=== PATIENT | male | born 1990 | race African-American/Black ===

== ENCOUNTER 2018-03-09 04:59 | Inpatient (IN) | payer SELFPAY ==
[2018-03-09] VITALS (9 sets, daily range): BP systolic 117–169; BP diastolic 68–95; PULSE 80–94; RESP 15–20; TEMP 98–99; O2SAT 94–100
[~2018-03-09] VITALS: Ht 175.3 cm; Wt 107.0 kg
--- NOTE | 2018-03-09 05:29 | PD ---
HPI Chief Complaint: Pain: Acute or Chronic Time Seen by Provider: 05:09 Travel History International Travel<30 days: No Contact w/Intl Traveler<30days: No Traveled to known affect area: No History of Present Illness HPI 19-year-old male complains of pain and swelling left elbow. Patient states that the symptoms started about a week ago. Patient was seen at an emergency room in [place] 4 days ago and was diagnosed with bursitis. Patient was given prescription of Naprosyn for pain. Patient was seen at another hospital 2 days after that. Patient was told that he has infection the left elbow and given prescription for Bactrim DS. Patient has been taking Bactrim DS as directed. Patient states he has increasing pain and swelling on left elbow. Patient stated pain is severe sharp pain mostly on the posterior aspect the left elbow. Patient states the pain is worse with movement the left elbow joint fever chills. Patient denies any other problem. On a scale from 1-10 the pain is a 10. PFSH Past Medical History Diabetes: Yes Patient Takes Glucophage: No Hypertension: Yes Influenza Vaccination: No Past Surgical History Surgical History: No Previous Surgery Social History Alcohol Use: No Tobacco Use: No Substance Use: No Allergies-Medications (Allergen,Severity, Reaction): Coded Allergies: No Known Allergies (Unverified , 03/09/18) Reported Meds & Prescriptions Reported Meds & Active Scripts Active Reported Novolin 70-30 Inj (Insulin Human Isoph/Insulin Regular) 1,000 Unit/10 Ml Vial 1 Units SQ Review of Systems General / Constitutional: No: Fever Eyes: No: Visual changes HENT: No: Headaches Cardiovascular: No: Chest Pain or Discomfort Respiratory: No: Shortness of Breath Gastrointestinal: No: Abdominal Pain Genitourinary: No: Dysuria Musculoskeletal: Positive: Pain Skin: No Rash Neurologic: No: Weakness Psychiatric: No: Depression Endocrine: No: Polydipsia Hematologic/Lymphatic: No: Easy Bruising Physical Exam Narrative GENERAL: Well-nourished, well-developed patient. SKIN: Focused skin assessment warm/dry. HEAD: Normocephalic. EYES: No scleral icterus. No injection or drainage. NECK: Supple, trachea midline. No JVD or lymphadenopathy. CARDIOVASCULAR: Regular rate and rhythm without murmurs, gallops, or rubs. RESPIRATORY: Breath sounds equal bilaterally. No accessory muscle use. GASTROINTESTINAL: Abdomen soft, non-tender, nondistended. MUSCULOSKELETAL: No cyanosis, or edema. BACK: Nontender without obvious deformity. No CVA tenderness. Patient is soft tissue swelling tenderness diffuse over the posterior medial lateral aspect of the left elbow joint. Limited range of motion of the left elbow secondary to pain. Sensory motor function distally intact. Data Data Last Documented VS Vital Signs Date Time Temp Pulse Resp B/P (MAP) Pulse Ox O2 Delivery O2 Flow Rate FiO2 03/09/18 05:37 96 Room Air 03/09/18 05:02 98.0 83 16 169/95 (119) Orders Orders Complete Blood Count With Diff (03/09/18 05:17) Comprehensive Metabolic Panel (03/09/18 05:17) Prothrombin Time / Inr (Pt) (03/09/18 05:17) Act Partial Throm Time (Ptt) (03/09/18 05:17) Blood Culture (03/09/18 05:17) Iv Access Insert/Monitor (03/09/18 05:17) Ecg Monitoring (03/09/18 05:17) Oximetry (03/09/18 05:17) C-Reactive Protein (Crp) (03/09/18 05:17) Westergren Sedimentation Rate (03/09/18 05:17) Sodium Chlor 0.9% 1000 Ml Inj (Ns 1000 M (03/09/18 05:30) Morphine Inj (Morphine Inj) (03/09/18 05:30) Ondansetron Inj (Zofran Inj) (03/09/18 05:30) Vancomycin Inj (Vancomycin Inj) (03/09/18 05:30) Elbow, Limited (Ap&Lat) (03/09/18 05:22) Mri Joint Elbow W&W/O Contrast (03/09/18 ) Labs Laboratory Tests Test 03/09/18 05:25 03/09/18 05:30 Erythrocyte Sedimentation Rate 39 mm/hr Prothrombin Time 9.4 SEC Prothromb Time International Ratio 0.9 RATIO Activated Partial Thromboplast Time 27.5 SEC Blood Urea Nitrogen 16 MG/DL Creatinine 1.19 MG/DL Random Glucose 379 MG/DL Total Protein 7.3 GM/DL Albumin 3.1 GM/DL Calcium Level 8.8 MG/DL Alkaline Phosphatase 78 U/L Aspartate Amino Transf (AST/SGOT) 33 U/L Alanine Aminotransferase (ALT/SGPT) 20 U/L Total Bilirubin 0.4 MG/DL Sodium Level 135 MEQ/L Potassium Level 4.4 MEQ/L Chloride Level 102 MEQ/L Carbon Dioxide Level 24.3 MEQ/L Anion Gap 9 MEQ/L Estimat Glomerular Filtration Rate 88 ML/MIN C-Reactive Protein 11.30 MG/DL White Blood Count 8.7 TH/MM3 Red Blood Count 5.39 MIL/MM3 Hemoglobin 14.5 GM/DL Hematocrit 42.5 % Mean Corpuscular Volume 78.8 FL Mean Corpuscular Hemoglobin 26.9 PG Mean Corpuscular Hemoglobin Concent 34.1 % Red Cell Distribution Width 13.0 % Platelet Count 228 TH/MM3 Mean Platelet Volume 8.7 FL Neutrophils (%) (Auto) 77.6 % Lymphocytes (%) (Auto) 12.9 % Monocytes (%) (Auto) 8.2 % Eosinophils (%) (Auto) 0.6 % Basophils (%) (Auto) 0.7 % Neutrophils # (Auto) 6.7 TH/MM3 Lymphocytes # (Auto) 1.1 TH/MM3 Monocytes # (Auto) 0.7 TH/MM3 Eosinophils # (Auto) 0.1 TH/MM3 Basophils # (Auto) 0.1 TH/MM3 CBC Comment DIFF FINAL Differential Comment MDM Medical Decision Making Medical Screen Exam Complete: Yes Emergency Medical Condition: Yes Interpretation(s) 6:31 AM. X-ray left elbow showed no acute bony injury. CBC WBC 8.7. 77 neutrophil. Sed rate 39. Sodium 135. Glucose 379. C-reactive protein 11.3. Differential Diagnosis Differential diagnosis including cellulitis, septic joint. Narrative Course 19-year-old male with pain and swelling and limited mobility left elbow joint. Normal saline solution 1 25 cc an hour. Vancomycin 1 g IV. Morphine 2 mg IV. Zofran 4 mg IV. Diagnosis Primary Impression: Cellulitis of left elbow Admitting Information Admitting Physician Requests: Admit Kyler Vasquez MD Mar 09, 2018 05:29
[2018-03-09] MEDS ORDERED: VANCOMYCIN INJ 1,000 MG in SODIUM CHLOR 0.9% 250 ML INJ 250 ML IV ONE (05:30)
[2018-03-09] MEDS ORDERED: MORPHINE SULFATE 2 MG/ML SYRINGE IV PUSH ONE (05:30)
[2018-03-09] MEDS ORDERED: ONDANSETRON HCL 4 MG/2 ML VIAL IV PUSH ONE (05:30)
[2018-03-09] MEDS ORDERED: SODIUM CHLOR 0.9% 1000 ML INJ 1,000 ML IV SCH (05:30)
[2018-03-09 05:42] LABS: AUTOMATED NEUTROPHIL # 6.7 TH/MM3 (1.8-7.7); BASOPHIL # 0.1 TH/MM3 (0-0.2); BASOPHIL % 0.7 % (0.0-2.0); EOSINOPHIL # 0.1 TH/MM3 (0-0.4); EOSINOPHIL % 0.6 % (0.0-4.0); HEMATOCRIT 42.5 % (39.0-51.0); HEMOGLOBIN 14.5 GM/DL (13.0-17.0); LYMPH % 12.9 % (9.0-44.0); LYMPHOCYTE # 1.1 TH/MM3 (1.0-4.8); MEAN CELL VOLUME 78.8 FL (80.0-100.0); MEAN CORPUSCULAR HEMOGLOBIN 26.9 PG (27.0-34.0); MEAN CORPUSCULAR HGB CONC 34.1 % (32.0-36.0); MEAN PLATELET VOLUME 8.7 FL (7.0-11.0); MONO % 8.2 % (0.0-8.0); MONOCYTE # 0.7 TH/MM3 (0-0.9); NEUT % 77.6 % (16.0-70.0); PLATELET COUNT 228 TH/MM3 (150-450); RED BLOOD COUNT 5.39 MIL/MM3 (4.50-5.90); WHITE BLOOD COUNT 8.7 TH/MM3 (4.0-11.0)
[2018-03-09] MEDS ORDERED: NOVO7030P2 SQ (05:48)
[2018-03-09 05:52] LABS: INTERNATIONAL NORMALIZED RATIO 0.9 RATIO; PROTHROMBIN TIME - PATIENT 9.4 SEC (9.8-11.6)
[2018-03-09 06:16] LABS: ALKALINE PHOSPHATASE 78 U/L (45-117); TOTAL BILIRUBIN ADULT 0.4 MG/DL (0.2-1.0); TOTAL PROTEIN 7.3 GM/DL (6.4-8.2)
[2018-03-09 06:24] LABS: ALBUMIN 3.1 GM/DL (3.4-5.0); ALT (GPT) 20 U/L (12-78); AST (GOT) 33 U/L (15-37); BICARBONATE 24.3 MEQ/L (21.0-32.0); BLOOD UREA NITROGEN 16 MG/DL (7-18); CALCIUM 8.8 MG/DL (8.5-10.1); CHLORIDE 102 MEQ/L (98-107); CREATININE 1.19 MG/DL (0.60-1.30); GLOMERULAR FILTRATION RATE 88 ML/MIN (>89); GLUCOSE,RANDOM 379 MG/DL (74-106); SODIUM (NA) 135 MEQ/L (136-145)
--- NOTE | 2018-03-09 06:29 | RADRPT ---
EXAM DATE/TIME: 03/09/2018 05:30 [facility] COMPARISON: No previous studies available for comparison. INDICATIONS : Elbow pain and swelling. MEDICAL HISTORY : None. SURGICAL HISTORY : None. ENCOUNTER: Initial ACUITY: 4 - 6 days PAIN SCORE: 10/10 LOCATION: Left upper extremity elbow FINDINGS: Two view examination of the left elbow demonstrates no soft tissue swelling, joint effusion, fracture or dislocation. Bony mineralization is normal. CONCLUSION: Unremarkable limited examination of the left elbow. Yuniel Garcia Jr., MD on March 09, 2018 at 6:27 Board Certified Radiologist. This report was verified electronically.
[2018-03-09] MEDS ORDERED: ONDANSETRON HCL 4 MG/2 ML VIAL IVP PRN (06:45)
[2018-03-09] MEDS ORDERED: SENNOSIDES 8.6 MG TAB PO PRN (06:45)
[2018-03-09] MEDS ORDERED: NORV2.5T PO (06:45)
[2018-03-09] MEDS ORDERED: Vancomycin Consult Pharmacy 1 EA OTHER SCH (06:45)
[2018-03-09] MEDS ORDERED: LISI10TA3 PO (06:45)
[2018-03-09] MEDS ORDERED: BISACODYL 10 MG SUPP RECTAL PRN (06:45)
[2018-03-09] MEDS ORDERED: LACTULOSE SYRUP 20 GM/30 ML CUP PO PRN (06:45)
[2018-03-09] MEDS ORDERED: ACETAMINOPHEN 325 MG TAB PO PRN (06:45)
[2018-03-09] MEDS ORDERED: SODIUM CHLORIDE 0.9% FLUSH 10 ML FLUSH IV FLUSH PRN (06:45)
[2018-03-09] MEDS ORDERED: MAGNESIUM HYDROXIDE SUSP 30 ML CUP PO PRN (06:45)
[2018-03-09] MEDS: VANCOMYCIN 1,000 MG/NS 250 ML IV ONE ×4 (07:05→08:15)
[2018-03-09] MEDS: SODIUM CHLOR 0.9% 1000 ML INJ 1,000 ML IV SCH ×2 (07:19→16:58)
[2018-03-09] MEDS ORDERED: GADODIAMIDE PF 287 MG/ML 20 ML VIAL (for RAD MRI) IVCONTRAST ONE (07:50)
[2018-03-09] MEDS: ACETAMINOPHEN/HYDROcodone 325 MG/5 MG TAB PO PRN ×3 (08:15→20:18)
--- NOTE | 2018-03-09 08:44 | RADRPT ---
EXAM DATE/TIME: 03/09/2018 07:25 [facility] COMPARISON: ELBOW LEFT LIMITED (AP & LAT), March 09, 2018, 5:30. INDICATIONS : Edema. Left elbow pain and swelling x 5 days without injury. CONTRAST: 20 cc Omniscan (gadodiamide) IV MEDICAL HISTORY : None. SURGICAL HISTORY : None. ENCOUNTER: Initial ACUITY: 4-6 days PAIN SCORE: 3/10 LOCATION: Left elbow TECHNIQUE: Multiplanar, multisequence MRI examination was performed without contrast and after the intravenous a dministration of gadolinium. FINDINGS: BONE/CARTILAGE: Bone marrow signal is homogeneous. Articular cartilage signal is within normal limits. TENDONS: All of the visualized tendons are intact. LIGAMENTS: The radial collateral and ulnar collateral ligament complexes are intact. MISCELLANEOUS: There is a focal irregular fluid collection in the subcutaneous tissue adjacent to the olecranon mechelle uring up to approximately 1.6 x 1.1 x 1.5 cm in greatest diameter. This extends out to the skin surfa ce an apparent small tract. After gadolinium administration extensive enhancement surrounding the flu id collection and in the adjacent subcutaneous fat. Diffuse soft tissue edema radius posteriorly. The re is minimal joint fluid. POST-CONTRAST: Extensive abnormal enhancement surrounding the fluid collection and posterior subcutaneous fat adjace nt to the olecranon and surrounding the irregular fluid collection. CONCLUSION: Irregular fluid collection with surrounding enhancement and edema most characteristic of an abscess. Lamont Shaw MD on March 09, 2018 at 8:36 Board Certified Radiologist. This report was verified electronically.
[2018-03-09] MEDS: DOCUSATE SODIUM 50 MG/SENNA 8.6 MG TAB PO SCH ×2 (08:52→20:05)
[2018-03-09] MEDS: SODIUM CHLORIDE 0.9% FLUSH 10 ML FLUSH IV FLUSH SCH ×2 (08:52→20:05)
[2018-03-09] MEDS ORDERED: DEXTROSE 50% IN WATER 50 ML VIAL(D50) IV PUSH PRN (09:00)
[2018-03-09] MEDS ORDERED: GLUCAGON 1 MG/ML VIAL OTHER PRN (09:00)
--- NOTE | 2018-03-09 09:14 | HHI.HP ---
HPI Service [facility] Primary Care Physician No Primary Care Physician Admission Diagnosis Left elbow cellulitis. Failed outpatient treatment Diagnoses: Chief Complaint: left elbow swelling Travel History International Travel<30 Days: No Contact w/Intl Traveler <30 Da: No Traveled to Known Affected Are: No History of Present Illness Written by Ritu Rodríguez, acting as scribe for Dr. Rodriguez on 03/09/18 at 09: 11. 27-year-old male with history of hypertension and insulin dependent diabetes presents with 5 day history of left elbow swelling and pain. The patient states he went to ER in [place], diagnosed with bursitis, given Rx for naproxen with no improvement. He then went to another ER the next day, diagnosed with cellulitis, attempted needle aspiration however only removed 4cc clear/bloody fluid, and he was discharged with prescription for Bactrim. He has been taking Bactrim for 2 days with no improvement. He reports diffuse left elbow swelling that extends into the forearm and upper arm, associated with severe 10/10 pain, now relieved s/p IV morphine and po norco in the ED. He reports limited ROM of the left elbow secondary to the pain and swelling. He denies any fevers/chills. He denies any injury to the elbow that he can recall. Denies any insect bite or wounds. He denies any IVDU. He denies any other medical complaints at this time. For his diabetes, he takes Humalog N 30u in morning, 20u in pm. The patient reports uncontrolled blood sugars at home, usually in the 200s. He recently signed up for a diabetes management group in [place]. Review of Systems Except as stated in HPI: all other systems reviewed are Neg Past Family Social History Past Medical History insulin dependent diabetes, diagnosed age 16 hypertension Past Surgical History Denies any prior surgeries. Reported Medications Norvasc (Amlodipine Besylate) 2.5 Mg Tab 2.5 Mg PO DAILY Lisinopril 10 Mg Tab 10 Mg PO DAILY Novolin 70-30 Inj (Insulin Human Isoph/Insulin Regular) 1,000 Unit/10 Ml Vial 1 Units SQ Allergies: Coded Allergies: No Known Allergies (Unverified , 03/09/18) Active Ordered Medications Current Medications Medications (Trade) Dose Ordered Sig/Kenny Route Start Time Stop Time Status Last Admin Pharmacy Profile Note 0 ml @ 0 mls/hr UNSCH OTHER 03/09/18 06:45 Cefepime HCl 1000 mg/Sodium Chloride 100 ml @ 200 mls/hr Q12H IV 03/09/18 18:00 Sodium Chloride 1,000 ml @ 100 mls/hr Q10H IV 03/09/18 06:40 03/09/18 07:19 (NS Flush) 2 ml UNSCH PRN IV FLUSH 03/09/18 06:45 (NS Flush) 2 ml BID IV FLUSH 03/09/18 09:00 (Zofran Inj) 4 mg Q6H PRN IVP 03/09/18 06:45 (Tylenol) 650 mg Q6H PRN PO 03/09/18 06:45 (Schuyler 5-325 Mg) 1 tab Q4H PRN PO 03/09/18 06:45 03/09/18 08:15 (Morphine Inj) 2 mg Q3H PRN IV PUSH 03/09/18 06:45 (Ana-Colace) 1 tab BID PO 03/09/18 09:00 (Milk Of Magnesia Liq) 30 ml Q12H PRN PO 03/09/18 06:45 (Senokot) 17.2 mg Q12H PRN PO 03/09/18 06:45 (Dulcolax Supp) 10 mg DAILY PRN RECTAL 03/09/18 06:45 (Lactulose Liq) 30 ml DAILY PRN PO 03/09/18 06:45 (D50w (Vial) Inj) 50 ml UNSCH PRN IV PUSH 03/09/18 09:00 (Glucagon Inj) 1 mg UNSCH PRN OTHER 03/09/18 09:00 (NovoLOG SUPPLEMENTAL SCALE) 1 ACHS SLIDING SCALE SQ 03/09/18 12:00 Family History Mother with diabetes and ESRD on dialysis Father with hypertension Grandma and sisters with diabetes Social History Denies any tobacco, alcohol, or illicit drug use. Physical Exam Vital Signs Vital Signs Date Time Temp Pulse Resp B/P (MAP) Pulse Ox O2 Delivery O2 Flow Rate FiO2 03/09/18 06:44 82 16 140/70 (93) 98 Room Air 03/09/18 05:37 96 Room Air 03/09/18 05:02 98.0 83 16 169/95 (119) 96 Physical Exam GENERAL: Well-nourished, well-developed young AA male patient in [facility]. SKIN: Warm and dry. No rash. HEAD: Normocephalic. Atraumatic. EYES: Pupils equal and round. No scleral icterus. No injection or drainage. ENT: No nasal bleeding or discharge. Mucous membranes pink and moist. NECK: Supple. Trachea midline. CARDIOVASCULAR: Regular rate and rhythm. S1, S2 noted. No murmur appreciated. RESPIRATORY: No accessory muscle use. Clear to auscultation. Breath sounds equal bilaterally. GASTROINTESTINAL: Abdomen soft, non-tender, nondistended. Normoactive bowel sounds x4. MUSCULOSKELETAL: Left elbow with diffuse edema and warmth throughout the entire elbow, with limited ROM of the left elbow secondary to pain/edema; no open wounds or drainage. NEUROLOGICAL: Awake and alert. No obvious cranial nerve deficits. Motor grossly within normal limits. Normal speech. PSYCHIATRIC: Appropriate mood and affect; insight and judgment normal. Laboratory Laboratory Tests Test 03/09/18 05:25 03/09/18 05:30 Erythrocyte Sedimentation Rate 39 Prothrombin Time 9.4 Prothromb Time International Ratio 0.9 Activated Partial Thromboplast Time 27.5 Blood Urea Nitrogen 16 Creatinine 1.19 Random Glucose 379 Total Protein 7.3 Albumin 3.1 Calcium Level 8.8 Alkaline Phosphatase 78 Aspartate Amino Transf (AST/SGOT) 33 Alanine Aminotransferase (ALT/SGPT) 20 Total Bilirubin 0.4 Sodium Level 135 Potassium Level 4.4 Chloride Level 102 Carbon Dioxide Level 24.3 Anion Gap 9 Estimat Glomerular Filtration Rate 88 C-Reactive Protein 11.30 White Blood Count 8.7 Red Blood Count 5.39 Hemoglobin 14.5 Hematocrit 42.5 Mean Corpuscular Volume 78.8 Mean Corpuscular Hemoglobin 26.9 Mean Corpuscular Hemoglobin Concent 34.1 Red Cell Distribution Width 13.0 Platelet Count 228 Mean Platelet Volume 8.7 Neutrophils (%) (Auto) 77.6 Lymphocytes (%) (Auto) 12.9 Monocytes (%) (Auto) 8.2 Eosinophils (%) (Auto) 0.6 Basophils (%) (Auto) 0.7 Neutrophils # (Auto) 6.7 Lymphocytes # (Auto) 1.1 Monocytes # (Auto) 0.7 Eosinophils # (Auto) 0.1 Basophils # (Auto) 0.1 CBC Comment DIFF FINAL Differential Comment Date/Time Source Procedure Growth Status 03/09/18 05:30 Blood Peripheral Aerobic Blood Culture Pending Received 03/09/18 05:30 Blood Peripheral Anaerobic Blood Culture Pending Received Result Diagram: 03/09/18 0530 03/09/18 0525 Imaging Last Impressions Elbow X-Ray 03/09/18521 Signed Impressions: Service Date/Time: Friday, March 09, 2018 05:30 - CONCLUSION: Unremarkable limited examination of the left elbow. Yuniel Garcia Jr., MD Elbow MRI 03/09/18 0000 Signed Impressions: Service Date/Time: Friday, March 09, 2018 07:25 - CONCLUSION: Irregular fluid collection with surrounding enhancement and edema most characteristic of an abscess. MD Tony Marie VTE Risk Assessment Caprincharan VTE Risk Assessment: No/Low Risk (score <= 1) Caprini Risk Assessment Model Point Value = 1 Point Value = 2 Point Value = 3 Point Value = 5 Age 41-60 Minor surgery BMI > 25 kg/m2 Swollen legs Varicose veins or History of unexplained or recurrent spontaneous Oral contraceptives or hormone replacement Sepsis (< 1 month) Serious lung disease, including pneumonia (< 1 month) Abnormal pulmonary function Acute myocardial infarction Congestive heart failure (< 1 month) History of inflammatory bowel disease Medical patient at bed rest Age 61-74 Arthroscopic surgery Major open surgery (> 45 min) Laparoscopic surgery (> 45 min) Malignancy Confined to bed (> 72 hours) Immobilizing plaster cast Central venous access Age >= 75 History of VTE Family history of VTE Factor V Leiden Prothrombin [id number] Lupus anticoagulant Anticardiolipin antibodies Elevated serum homocysteine Heparin-induced thrombocytopenia Other congenital or acquired thrombophilia Stroke (< 1 month) Elective arthroplasty Hip, pelvis, or leg fracture Acute spinal cord injury (< 1 month) Prophylaxis Regimen Total Risk Factor Score Risk Level Prophylaxis Regimen 0-1 Low Early ambulation 2 Moderate Order ONE of the following: *Sequential Compression Device (SCD) *Heparin 5000 units SQ BID 3-4 Higher Order ONE of the following medications: *Heparin 5000 units SQ TID *Enoxaparin/Lovenox 40 mg SQ daily (WT < 150 kg, CrCl > 30 mL/min) *Enoxaparin/Lovenox 30 mg SQ daily (WT < 150 kg, CrCl > 10-29 mL/min) *Enoxaparin/Lovenox 30 mg SQ BID (WT < 150 kg, CrCl > 30 mL/min) AND/OR *Sequential Compression Device (SCD) 5 or more Highest Order ONE of the following medications: *Heparin 5000 units SQ TID (Preferred with Epidurals) *Enoxaparin/Lovenox 40 mg SQ daily (WT < 150 kg, CrCl > 30 mL/min) *Enoxaparin/Lovenox 30 mg SQ daily (WT < 150 kg, CrCl > 10-29 mL/min) *Enoxaparin/Lovenox 30 mg SQ BID (WT < 150 kg, CrCl > 30 mL/min) AND *Sequential Compression Device (SCD) Assessment and Plan Problem List: (1) Left Elbow Abscess Assessment and Plan 27-year-old male with history of hypertension and insulin dependent diabetes presents with 5 day history of left elbow swelling and pain. Left Elbow Abscess: afebrile, no leukocytosis, ESR 39, CRP 11.30. -Left elbow MRI shows irregular fluid collection with surrounding enhancement and edema; most characteristic of an abscess -Continue on IV antibiotics with Cefepime and Vanco, pharmacy consult -Pain control with Schuyler prn, IV morphine prn breakthrough pain -Elevate LUE -Keep NPO for now -Consulted ortho Insulin Dependent Diabetes, Uncontrolled: BG 379 upon arrival. Patient takes Humalog N 30u in morning, 20u in pm. He reports uncontrolled blood sugars at home, usually in the 200s. -Hold patient's home insulin for now while NPO -Monitor accu-checks and cover with SSI Hypertension: chronic -continue patient's Norvasc 2.5mg daily and Lisinopril 10mg daily -Monitor BP, adjust antihypertensives as needed DVT Prophylaxis: teds/SCDs; avoid chemoprophylaxis for now until evaluated by surgeon the above note was scribed by Ms.Kristy Rodríguez. I attest that I had a face-to- face encounter with the patient and personally performed the history and physical exam and medical decision making. Code Status Full Code Discussed Condition With Patient, ER Ritu Barrett PA-C Mar 09, 2018 09:14 Marilin Rodriguez MD Mar 09, 2018 10:18
[2018-03-09] MEDS ORDERED: PILL SPLITTER OTHER PRN (10:15)
[2018-03-09] MEDS: amLODIPine BESYLATE 5 MG TAB PO SCH (10:17)
[2018-03-09] MEDS: LISINOPRIL 10 MG TAB PO SCH (10:17)
[2018-03-09] MEDS: INSULIN ASPART SUPPLEMENTAL SCALE SQ SCH ×3 (11:56→22:08)
--- NOTE | 2018-03-09 14:57 | PD.CONS ---
cc: Sabino Rosado Jr., MD HPI Service Orthopedic Surgeons Consult Requested By Primary Care Physician No Primary Care Physician Admission Diagnosis Left elbow cellulitis. Failed outpatient treatment Diagnoses: (1) Left Elbow Abscess Chief Complaint: Left olecranon bursa History of Present Illness 27-year-old male with history of hypertension and insulin dependent diabetes presents with 5 day history of left elbow swelling and pain. The patient states he went to ER in [place], diagnosed with bursitis, at which time it was aspirated and he was discharged with NSAIDs and po bactrim. He does not recall any trauma or fall on the elbow. -X-ray negative for fracture and MRI revealed a small subcutaneous fluid collection. -Currently is alert, pain localized at left elbow, patient's is 6 out of 10, exacerbated by any range of motion, WB, relieved at rest and with IV pain medicine, pain is sharp, not associated with any paresthesia and numbness to the extremity. ROS - General Review of Systems Except as stated in HPI: all other systems reviewed are Neg PFSH Past Family Social History Past Medical History insulin dependent diabetes, diagnosed age 16 hypertension Past Surgical History Denies any prior surgeries. Reported Medications Norvasc (Amlodipine Besylate) 2.5 Mg Tab 2.5 Mg PO DAILY Lisinopril 10 Mg Tab 10 Mg PO DAILY Novolin 70-30 Inj (Insulin Human Isoph/Insulin Regular) 1,000 Unit/10 Ml Vial 1 Units SQ Allergies: Coded Allergies: No Known Allergies (Unverified , 03/09/18) Active Ordered Medications Current Medications Medications (Trade) Dose Ordered Sig/Kenny Route Start Time Stop Time Status Last Admin Pharmacy Profile Note 0 ml @ 0 mls/hr UNSCH OTHER 03/09/18 06:45 Cefepime HCl 1000 mg/Sodium Chloride 100 ml @ 200 mls/hr Q12H IV 03/09/18 18:00 Sodium Chloride 1,000 ml @ 100 mls/hr Q10H IV 03/09/18 06:40 03/09/18 07:19 (NS Flush) 2 ml UNSCH PRN IV FLUSH 03/09/18 06:45 (NS Flush) 2 ml BID IV FLUSH 03/09/18 09:00 (Zofran Inj) 4 mg Q6H PRN IVP 03/09/18 06:45 (Tylenol) 650 mg Q6H PRN PO 03/09/18 06:45 ([place] 5-325 Mg) 1 tab Q4H PRN PO 03/09/18 06:45 03/09/18 08:15 (Morphine Inj) 2 mg Q3H PRN IV PUSH 03/09/18 06:45 (Ana-Colace) 1 tab BID PO 03/09/18 09:00 (Milk Of Magnesia Liq) 30 ml Q12H PRN PO 03/09/18 06:45 (Senokot) 17.2 mg Q12H PRN PO 03/09/18 06:45 (Dulcolax Supp) 10 mg DAILY PRN RECTAL 03/09/18 06:45 (Lactulose Liq) 30 ml DAILY PRN PO 03/09/18 06:45 (D50w (Vial) Inj) 50 ml UNSCH PRN IV PUSH 03/09/18 09:00 (Glucagon Inj) 1 mg UNSCH PRN OTHER 03/09/18 09:00 (NovoLOG SUPPLEMENTAL SCALE) 1 ACHS SLIDING SCALE SQ 03/09/18 12:00 Family History Mother with diabetes and ESRD on dialysis Father with hypertension Grandma and sisters with diabetes Social History Denies any tobacco, alcohol, or illicit drug use. Past Family Social History Past Medical History insulin dependent diabetes, diagnosed age 16 hypertension Past Surgical History Denies any prior surgeries. Allergies: Coded Allergies: No Known Allergies (Unverified , 03/09/18) Active Ordered Medications Current Medications Medications (Trade) Dose Ordered Sig/Kenny Route Start Time Stop Time Status Last Admin Pharmacy Profile Note 0 ml @ 0 mls/hr UNSCH OTHER 03/09/18 06:45 Cefepime HCl 1000 mg/Sodium Chloride 100 ml @ 200 mls/hr Q12H IV 03/09/18 18:00 Sodium Chloride 1,000 ml @ 100 mls/hr Q10H IV 03/09/18 06:40 03/09/18 07:19 (NS Flush) 2 ml UNSCH PRN IV FLUSH 03/09/18 06:45 (NS Flush) 2 ml BID IV FLUSH 03/09/18 09:00 (Zofran Inj) 4 mg Q6H PRN IVP 03/09/18 06:45 (Tylenol) 650 mg Q6H PRN PO 03/09/18 06:45 ([place] 5-325 Mg) 1 tab Q4H PRN PO 03/09/18 06:45 03/09/18 13:36 (Morphine Inj) 2 mg Q3H PRN IV PUSH 03/09/18 06:45 (Ana-Colace) 1 tab BID PO 03/09/18 09:00 (Milk Of Magnesia Liq) 30 ml Q12H PRN PO 03/09/18 06:45 (Senokot) 17.2 mg Q12H PRN PO 03/09/18 06:45 (Dulcolax Supp) 10 mg DAILY PRN RECTAL 03/09/18 06:45 (Lactulose Liq) 30 ml DAILY PRN PO 03/09/18 06:45 (D50w (Vial) Inj) 50 ml UNSCH PRN IV PUSH 03/09/18 09:00 (Glucagon Inj) 1 mg UNSCH PRN OTHER 03/09/18 09:00 (NovoLOG SUPPLEMENTAL SCALE) 1 ACHS SLIDING SCALE SQ 03/09/18 12:00 03/09/18 11:56 Vancomycin HCl 1750 mg/Sodium Chloride 517.5 ml @ 250 mls/hr Q12H IV 03/09/18 20:00 Miscellaneous Information SPECIFIC LAB TO BE DRAWN:VANCO TROUGH DATE TO BE DR... ONCE ONCE .XX 03/11/18 07:45 03/11/18 07:46 (Norvasc) 2.5 mg DAILY PO 03/09/18 10:00 03/09/18 10:17 (Prinivil) 10 mg DAILY PO 03/09/18 11:00 03/09/18 10:17 (Pill Splitter) 1 ea UNSCH PRN OTHER 03/09/18 10:15 Reported Meds & Active Scripts Active Reported Norvasc (Amlodipine Besylate) 2.5 Mg Tab 2.5 Mg PO DAILY Lisinopril 10 Mg Tab 10 Mg PO DAILY Novolin 70-30 Inj (Insulin Human Isoph/Insulin Regular) 1,000 Unit/10 Ml Vial 1 Units SQ Family History Mother with diabetes and ESRD on dialysis Father with hypertension Grandma and sisters with diabetes Social History Denies any tobacco, alcohol, or illicit drug use. Physical Exam Vital Signs Vital Signs Date Time Temp Pulse Resp B/P (MAP) Pulse Ox O2 Delivery O2 Flow Rate FiO2 03/09/18 14:36 18 03/09/18 13:21 98.2 80 20 139/89 (106) 96 03/09/18 13:13 03/09/18 12:00 98.4 81 18 117/68 (84) 99 Room Air 03/09/18 10:00 84 16 136/86 (103) 100 Room Air 03/09/18 06:44 82 16 140/70 (93) 98 Room Air 03/09/18 05:37 96 Room Air 03/09/18 05:02 98.0 83 16 169/95 (119) 96 Physical Exam Alert awake and oriented x 3. No acute distress. Neck: No pain with any range of motion and neck. Pulmonary: Normal respiratory effort. Abdomen soft, nontender, nondistended Left upper extremity exam: Grossly neurovascular intact. Elbow range of motion 20 extension to 90 of flexion. Full supination pronation. Diffuse erythema on the posterior aspect of the elbow overlying the olecranon bursa and posterior tricep. Tender to palpation just over the olecranon. No tenderness around the triceps or forearm. Compartments are soft. No induration or fluctuance. Intact sensation distally in median, ulnar, and radial nerve. Intact motor in anterior interosseous, posterior interosseous, and ulnar nerve. 2+ radial artery pulses. Good cap refill. Bilateral LE: No deformity. Grossly neurovascularly intact. No crepitus or pain with passive range of motion at the ankles, knees and hips. Laboratory Laboratory Tests Test 03/09/18 05:25 03/09/18 05:30 Erythrocyte Sedimentation Rate 39 Prothrombin Time 9.4 Prothromb Time International Ratio 0.9 Activated Partial Thromboplast Time 27.5 Blood Urea Nitrogen 16 Creatinine 1.19 Random Glucose 379 Total Protein 7.3 Albumin 3.1 Calcium Level 8.8 Alkaline Phosphatase 78 Aspartate Amino Transf (AST/SGOT) 33 Alanine Aminotransferase (ALT/SGPT) 20 Total Bilirubin 0.4 Sodium Level 135 Potassium Level 4.4 Chloride Level 102 Carbon Dioxide Level 24.3 Anion Gap 9 Estimat Glomerular Filtration Rate 88 C-Reactive Protein 11.30 White Blood Count 8.7 Red Blood Count 5.39 Hemoglobin 14.5 Hematocrit 42.5 Mean Corpuscular Volume 78.8 Mean Corpuscular Hemoglobin 26.9 Mean Corpuscular Hemoglobin Concent 34.1 Red Cell Distribution Width 13.0 Platelet Count 228 Mean Platelet Volume 8.7 Neutrophils (%) (Auto) 77.6 Lymphocytes (%) (Auto) 12.9 Monocytes (%) (Auto) 8.2 Eosinophils (%) (Auto) 0.6 Basophils (%) (Auto) 0.7 Neutrophils # (Auto) 6.7 Lymphocytes # (Auto) 1.1 Monocytes # (Auto) 0.7 Eosinophils # (Auto) 0.1 Basophils # (Auto) 0.1 CBC Comment DIFF FINAL Differential Comment Date/Time Source Procedure Growth Status 03/09/18 05:30 Blood Peripheral Aerobic Blood Culture Pending Received 03/09/18 05:30 Blood Peripheral Anaerobic Blood Culture Pending Received Result Diagram: 03/09/18 0530 03/09/18 0525 Imaging Last 72 hours Impressions Elbow X-Ray 03/09/18 0522 Signed Impressions: Service Date/Time: Friday, March 09, 2018 05:30 - CONCLUSION: Unremarkable limited examination of the left elbow. Yuniel Garcia Jr., MD Elbow MRI 03/09/18 0000 Signed Impressions: Service Date/Time: Friday, March 09, 2018 07:25 - CONCLUSION: Irregular fluid collection with surrounding enhancement and edema most characteristic of an abscess. Lamont Shaw MD Assessment & Plan Assessment and Plan 27-year-old male with history of hypertension and insulin dependent diabetes presents with 5 day history of left elbow swelling and pain. The patient states he went to ER in [place], diagnosed with bursitis, at which time it was aspirated and he was discharged with NSAIDs and po bactrim. He does not recall any trauma or fall on the elbow. He presented with increased pain but the swelling has improved. On exam he is grossly neurovascular intact with good active and passive range of motion of the left elbow. There is no area of fluctuance, or induration but has diffuse erythema overlying the elbow consistent with cellulitis. I recommend continue medical management with IV antibiotics and range of motion as tolerated. I will see him tomorrow and reevaluate. Sabino Rosado Jr., MD Mar 09, 2018 14:57
[2018-03-09] MEDS: CEFEPIME INJ 1,000 MG in SODIUM CHLORIDE 0.9% INJ 100 ML IV SCH (16:58)
[2018-03-09] MEDS: MORPHINE SULFATE 2 MG/ML SYRINGE IV PUSH PRN ×2 (16:59→22:07)
[2018-03-09] MEDS: VANCOMYCIN INJ 1,750 MG in SODIUM CHLORID 0.9% 500 ML INJ 500 ML IV SCH (20:05)
[2018-03-10] MEDS: SODIUM CHLOR 0.9% 1000 ML INJ 1,000 ML IV SCH (02:47)
[2018-03-10 05:17] VITALS: BP 144/90; PULSE 79; RESP 15; TEMP 98.7; O2SAT 98
[2018-03-10] MEDS: CEFEPIME INJ 1,000 MG in SODIUM CHLORIDE 0.9% INJ 100 ML IV SCH (05:17)
[2018-03-10 07:38] LABS: AUTOMATED NEUTROPHIL # 7.6 TH/MM3 (1.8-7.7); BASOPHIL % 0.4 % (0.0-2.0); EOSINOPHIL % 0.4 % (0.0-4.0); HEMOGLOBIN 14.9 GM/DL (13.0-17.0); LYMPH % 14.3 % (9.0-44.0); LYMPHOCYTE # 1.4 TH/MM3 (1.0-4.8); MEAN CORPUSCULAR HEMOGLOBIN 26.4 PG (27.0-34.0); MEAN CORPUSCULAR HGB CONC 33.8 % (32.0-36.0); MEAN PLATELET VOLUME 8.3 FL (7.0-11.0); MONO % 7.9 % (0.0-8.0); MONOCYTE # 0.8 TH/MM3 (0-0.9); PLATELET COUNT 260 TH/MM3 (150-450); RED BLOOD COUNT 5.64 MIL/MM3 (4.50-5.90); RED CELL DISTRIBUTION WIDTH 13.1 % (11.6-17.2); WHITE BLOOD COUNT 9.8 TH/MM3 (4.0-11.0)
[2018-03-10] MEDS: INSULIN ASPART SUPPLEMENTAL SCALE SQ SCH ×2 (08:00→12:00)
[2018-03-10 08:02] LABS: BLOOD UREA NITROGEN 8 MG/DL (7-18); CALCIUM 9.4 MG/DL (8.5-10.1); CHLORIDE 103 MEQ/L (98-107); CREATININE 1.09 MG/DL (0.60-1.30); GLOMERULAR FILTRATION RATE 98 ML/MIN (>89); GLUCOSE,RANDOM 296 MG/DL (74-106); SODIUM (NA) 137 MEQ/L (136-145)
[2018-03-10 08:03] LABS: ALT (GPT) 16 U/L (12-78)
[2018-03-10 08:07] LABS: ALKALINE PHOSPHATASE 60 U/L (45-117); AST (GOT) 11 U/L (15-37); TOTAL BILIRUBIN ADULT 0.5 MG/DL (0.2-1.0); TOTAL PROTEIN 7.4 GM/DL (6.4-8.2)
[2018-03-10 08:37] VITALS: BP 137/89; PULSE 86; RESP 16; TEMP 99.6; O2SAT 95
[2018-03-10] MEDS: DOCUSATE SODIUM 50 MG/SENNA 8.6 MG TAB PO SCH (08:59)
[2018-03-10] MEDS: SODIUM CHLORIDE 0.9% FLUSH 10 ML FLUSH IV FLUSH SCH (09:00)
[2018-03-10] MEDS: VANCOMYCIN INJ 1,750 MG in SODIUM CHLORID 0.9% 500 ML INJ 500 ML IV SCH (09:00)
[2018-03-10] MEDS: amLODIPine BESYLATE 5 MG TAB PO SCH (09:01)
[2018-03-10] MEDS: LISINOPRIL 10 MG TAB PO SCH (09:01)
[2018-03-10] MEDS: ACETAMINOPHEN/HYDROcodone 325 MG/5 MG TAB PO PRN (09:01)
--- NOTE | 2018-03-10 09:52 | HHI.PR ---
Subjective Remarks Follow up for left elbow cellulitis/abscess. The patient reports continued left elbow edema, erythema, and pain; mildly improved compared to yesterday. He reports improvement of range of motion of the left elbow with almost full extension and increased flexion. Denies fevers/chills. Denies any other medical complaints. Objective Vitals Vital Signs Date Time Temp Pulse Resp B/P (MAP) Pulse Ox O2 Delivery O2 Flow Rate FiO2 03/10/18 08:37 99.6 86 16 137/89 (105) 95 03/10/18 05:17 98.7 79 15 144/90 (108) 98 03/09/18 23:45 99.0 89 15 148/90 (109) 94 03/09/18 20:10 98.7 94 18 134/71 (92) 97 03/09/18 17:04 18 03/09/18 16:08 98.6 80 20 135/78 (97) 96 03/09/18 14:36 18 03/09/18 13:21 98.2 80 20 139/89 (106) 96 03/09/18 13:13 03/09/18 12:00 98.4 81 18 117/68 (84) 99 Room Air 03/09/18 10:00 84 16 136/86 (103) 100 Room Air I/O 03/09/18 03/09/18 03/09/18 03/10/18 03/10/18 03/10/18 07:00 15:00 23:00 07:00 15:00 23:00 Intake Total 240 ml Output Total 900 ml Balance 240 ml -900 ml Intake Oral 240 ml Output Urine Total 900 ml Result Diagram: 03/10/1802 03/10/18 0702 Imaging Last Impressions Elbow X-Ray 03/09/18 05 Signed Impressions: Service Date/Time: Friday, March 09, 2018 05:30 - CONCLUSION: Unremarkable limited examination of the left elbow. Yuniel Garcia Jr., MD Elbow MRI 03/09/18 0000 Signed Impressions: Service Date/Time: Friday, March 09, 2018 07:25 - CONCLUSION: Irregular fluid collection with surrounding enhancement and edema most characteristic of an abscess. Lamont Shaw MD Objective Remarks GENERAL: Well-nourished, well-developed young AA male patient in NAD. SKIN: Warm and dry. No rash. HEENT: Normocephalic. Atraumatic.Pupils equal and round. Mucous membranes pink and moist. CARDIOVASCULAR: Regular rate and rhythm. No murmur appreciated. RESPIRATORY: No accessory muscle use. Clear to auscultation. Breath sounds equal bilaterally. GASTROINTESTINAL: Abdomen soft, non-tender, nondistended. Normoactive bowel sounds x4. MUSCULOSKELETAL: Left elbow with mild diffuse edema/erythema throughout elbow, worse at posterior lateral aspect; overall improved today, with increased ROM of left elbow; no open wounds or drainage. NEUROLOGICAL: Awake and alert. No obvious cranial nerve deficits. Motor grossly within normal limits. Normal speech. PSYCHIATRIC: Appropriate mood and affect; insight and judgment normal. Medications and IVs Current Medications Medications (Trade) Dose Ordered Sig/Kenny Route Start Time Stop Time Status Last Admin Pharmacy Profile Note 0 ml @ 0 mls/hr UNSCH OTHER 03/09/18 06:45 Cefepime HCl 1000 mg/Sodium Chloride 100 ml @ 200 mls/hr Q12H IV 03/09/18 18:00 03/10/18 05:17 Sodium Chloride 1,000 ml @ 100 mls/hr Q10H IV 03/09/18 06:40 03/10/18 02:47 (NS Flush) 2 ml UNSCH PRN IV FLUSH 03/09/18 06:45 (NS Flush) 2 ml BID IV FLUSH 03/09/18 09:00 03/10/18 09:00 (Zofran Inj) 4 mg Q6H PRN IVP 03/09/18 06:45 03/09/18 18:55 (Tylenol) 650 mg Q6H PRN PO 03/09/18 06:45 ([place] 5-325 Mg) 1 tab Q4H PRN PO 03/09/18 06:45 03/10/18 09:01 (Morphine Inj) 2 mg Q3H PRN IV PUSH 03/09/18 06:45 03/09/18 22:07 (Ana-Colace) 1 tab BID PO 03/09/18 09:00 (Milk Of Magnesia Liq) 30 ml Q12H PRN PO 03/09/18 06:45 (Senokot) 17.2 mg Q12H PRN PO 03/09/18 06:45 (Dulcolax Supp) 10 mg DAILY PRN RECTAL 03/09/18 06:45 (Lactulose Liq) 30 ml DAILY PRN PO 03/09/18 06:45 (D50w (Vial) Inj) 50 ml UNSCH PRN IV PUSH 03/09/18 09:00 (Glucagon Inj) 1 mg UNSCH PRN OTHER 03/09/18 09:00 (NovoLOG SUPPLEMENTAL SCALE) 1 ACHS SLIDING SCALE SQ 03/09/18 12:00 03/10/18 08:00 Vancomycin HCl 1750 mg/Sodium Chloride 517.5 ml @ 250 mls/hr Q12H IV 03/09/18 20:00 03/10/18 09:00 Miscellaneous Information SPECIFIC LAB TO BE DRAWN:VANCO TROUGH DATE TO BE DRRobby.. ONCE ONCE .XX 03/11/18 07:45 03/11/18 07:46 (Norvasc) 2.5 mg DAILY PO 03/09/18 10:00 03/10/18 09:01 (Prinivil) 10 mg DAILY PO 03/09/18 11:00 03/10/18 09:01 (Pill Splitter) 1 ea UNSCH PRN OTHER 03/09/18 10:15 A/P Problem List: (1) Left Elbow Abscess Assessment and Plan 27-year-old male with history of hypertension and insulin dependent diabetes presents with 5 day history of left elbow swelling and pain. Left Elbow Abscess: afebrile, no leukocytosis, ESR 39, CRP 11.30. -Left elbow MRI shows irregular fluid collection with surrounding enhancement and edema; most characteristic of an abscess -Continue on IV antibiotics with Cefepime and Vanco, pharmacy consult -Pain control with [place] prn, IV morphine prn breakthrough pain -Elevate LUE -Consulted ortho, recommended IV antibiotics overnight last night, now cleared for discharge today on po antibiotics, outpatient f/up -Symptoms improving, decreased edema/erythema, and increased ROM of left elbow Insulin Dependent Diabetes, Uncontrolled: BG 379 upon arrival. Patient takes Humalog N 30u in morning, 20u in pm. He reports uncontrolled blood sugars at home, usually in the 200s. -Initially held patient's home insulin for now while NPO -Monitor accu-checks and cover with SSI -restart patient's insulin Hypertension: chronic -continue patient's Norvasc 2.5mg daily and Lisinopril 10mg daily -Monitor BP, adjust antihypertensives as needed DVT Prophylaxis: teds/SCDs; avoid chemoprophylaxis for now incase surgical intervention warranted Discharge Planning Discharge patient to home Condition on discharge: Stable Diabetic Diet as tolerated Ad Liza activity Rx written: Keflex 500mg q8h [id number], Doxycycline 100mg bid [id number] Follow-up with primary care physician and orthopedics Ritu Rodríguez PA-C Mar 10, 2018 9:52 am
[2018-03-10 10:04] VITALS: RESP 22
--- NOTE | 2018-03-10 11:01 | PD.ORT.PN ---
Subjective Subjective Remarks feeling much better Objective Vitals Vital Signs Date Time Temp Pulse Resp B/P (MAP) Pulse Ox O2 Delivery O2 Flow Rate FiO2 03/10/18 10:04 22 03/10/18 08:37 99.6 86 16 137/89 (105) 95 03/10/18 05:17 98.7 79 15 144/90 (108) 98 03/09/18 23:45 99.0 89 15 148/90 (109) 94 03/09/18 20:10 98.7 94 18 134/71 (92) 97 03/09/18 17:04 18 03/09/18 16:08 98.6 80 20 135/78 (97) 96 03/09/18 13:21 98.2 80 20 139/89 (106) 96 03/09/18 13:13 03/09/18 12:00 98.4 81 18 117/68 (84) 99 Room Air I/O 03/09/18 03/09/18 03/09/18 03/10/18 03/10/18 03/10/18 06:59 14:59 22:59 06:59 14:59 22:59 Intake Total 240 ml Output Total 900 ml Balance 240 ml -900 ml Intake Oral 240 ml Output Urine Total 900 ml Result Diagram: 03/10/18 0702 03/10/18 0702 Objective Remarks LUE: nvi. improved cellulitis. no fluctuance. mild erythema. improved ROM. Assessment & Plan Assessment and Plan 27-year-old male with history of hypertension and insulin dependent diabetes presents with 5 day history of left elbow swelling and pain. Left olecranon bursitis -feeling much better. clinically improved. afebrile, normal WBC -NWB -ROM as tolerated left elbow -continue medical management -ok to dc with PO abx -reg diet f/u outpatient 1-2 wks Sabino Rosado Jr., MD Mar 10, 2018 11:01
[2018-03-10] MEDS ORDERED: CEPH-460 PO (11:11)
[2018-03-10] MEDS ORDERED: DOXY100C PO (11:11)
--- NOTE | 2018-03-10 11:11 | HHI.DCPOC ---
Discharge Care Plan Diagnosis: (1) Left Elbow Abscess (2) Cellulitis of left elbow Goals to Promote Your Health * To prevent worsening of your condition and complications * To maintain your health at the optimal level Directions to Meet Your Goals Take your medications as prescribed Follow your dietary instruction Follow activity as directed Keep your appointments as scheduled Take your immunizations and boosters as scheduled If your symptoms worsen call your PCP, if no PCP go to Urgent Care Center or Emergency Room Smoking is Dangerous to Your Health. Avoid second hand smoke Call the 24-hour hour crisis hotline for domestic abuse at Ritu Rodríguez PA-C Mar 10, 2018 11:11 am
[2018-03-11] MEDS ORDERED: PHARMACY ORDERED LAB ONE (07:45)
== END 2018-03-10 13:19 | disposition home or self-care (01) | DRG 603 ==
LOC: NEPC 04:59 → NEDA 06:48 → NEPHCDU 13:16
PROVIDERS: ADMIT Internal Medicine; ATTEND Internal Medicine
DX: L02.414 Cutaneous abscess of left upper limb (principal); I10 Essential (primary) hypertension; L03.114 Cellulitis of left upper limb; M71.122 Other infective bursitis, left elbow; E11.9 Type 2 diabetes mellitus without complications; Z79.4 Long term (current) use of insulin; Z79.899 Other long term (current) drug therapy
CPT/HCPCS: 73070; 73223; 80053; 82948; 85025; 85610; 85652; 85730; 86140; 87040; 96365; 96375; A9579; J0692; J1815; J2270; J2405; J3370; J7030; J7040; J7050